=== PATIENT | female | born 1995 | race Two or more races ===

== ENCOUNTER 2018-12-02 22:37 | Emergency (ER) | payer MEDICAID ==
[~2018-12-02] VITALS: Ht 157.5 cm; Wt 63.5 kg
[2018-12-02 23:26] VITALS: BP 125/83
[2018-12-02 23:35] LABS: Urine Bacteria FEW /hpf (None Seen); Urine Blood Negative /uL (Negative); Urine Specific Gravity 1.027 (1.001-1.035); Urine WBC 21 /hpf (0 - 5)
[2018-12-03 00:32] LABS: Basophils # (auto) 0.1 uL; Basophils % (auto) 0.4 % (0.0-2.0); Eosinophils # (auto) 0.1 uL; Eosinophils % (auto) 1.1 % (0.0-7.0); Hematocrit 36.4 % (36.0-46.0); Hemoglobin 12.3 g/dL (12.2-16.2); Lymphocytes # (auto) 2.6 uL; Mean Corpuscular Hgb Conc. 33.8 g/dL (32.0-36.0); Mean Corpuscular Volume 80.1 fL (80.0-100.0); Monocytes # (auto) 1.1 uL; Monocytes % (auto) 8.5 % (0.0-12.0); Nucleated Red Blood Cells % 0.1 %; Platelet Count (auto) 306 10^3/uL (140-450); Red Blood Cells 4.54 10^6/uL (4.0-5.20); Red Cell Distribution Width 14.5 % (11.8-14.3); White Blood Cell 12.9 10^3/uL (4.4-10.8)
[2018-12-03 00:53] LABS: Albumin 3.7 g/dL (3.4-5.0); Amylase 63 U/L (25-115); Anion Gap 11 (5-15); Blood Urea Nitrogen 11 mg/dL (7-18); Calcium 8.7 mg/dL (8.5-10.1); Carbon Dioxide 23 mmol/L (21-32); Chloride 107 mmol/L (98-107); Glucose 77 mg/dL (74-106); Lipase 92 U/L (73-393); Potassium 3.8 mmol/L (3.5-5.1); Sodium 141 mmol/L (136-145)
[2018-12-03 00:55] LABS: Alanine Aminotransferase 49 U/L (13-56); Aspartate Aminotransferase 18 U/L (15-37); BUN/Creatinine Ratio 19.3; GFR African American 166 mL/min; GFR Non-African American 137 mL/min
[2018-12-03 00:57] LABS: Alkaline Phosphatase 72 U/L (45-117); Bilirubin, Total 0.4 mg/dL (0.2-1.0); Total Protein 7.7 g/dL (6.4-8.2)
== END 2018-12-03 03:49 | disposition left against medical advice (07) ==
LOC: ER 22:40
DX: O99.511 Diseases of the respiratory system complicating pregnancy, first trimester (principal); R05 Cough; Z3A.01 Less than 8 weeks gestation of pregnancy; Z53.21 Procedure and treatment not carried out due to patient leaving prior to being seen by health care provider
CPT/HCPCS: 36415; 80053; 81001; 82150; 83690; 84702; 85025

== ENCOUNTER 2022-09-14 08:53 | Emergency (ER) | payer MEDICAID, OTHER ==
[~2022-09-14] VITALS: Ht 157.5 cm; Wt 65.0 kg
[2022-09-14 09:45] VITALS: BP 127/73
[2022-09-14 10:01] LABS: Basophils # (auto) 0.1 10 ^3/uL (0-0.2); Basophils % (auto) 0.7 % (0.0-2.0); Eosinophils # (auto) 0.1 10 ^3/uL (0-0.8); Eosinophils % (auto) 1.4 % (0.0-7.0); Hematocrit 42.6 % (36.0-46.0); Hemoglobin 14.6 g/dL (12.2-16.2); Lymphocytes # (auto) 1.9 10 ^3/uL (0.4-5.4); Lymphocytes % (auto) 26.9 % (10.0-50.0); Mean Corpuscular Hemoglobin 29.5 pg (28.0-32.0); Mean Corpuscular Hgb Conc. 34.3 g/dL (32.0-36.0); Mean Corpuscular Volume 86.1 fL (80.0-100.0); Monocytes # (auto) 0.5 10 ^3/uL (0-1.3); Monocytes % (auto) 7.1 % (0.0-12.0); Neutrophils # (auto) 4.5 10 ^3/uL (1.6-8.6); Neutrophils % (auto) 63.9 % (37.0-80.0); Nucleated Red Blood Cells % 0.2 %; Red Blood Cells 4.95 10^6/uL (4.0-5.20); Red Cell Distribution Width 12.4 % (11.8-14.3)
[2022-09-14 10:12] LABS: Urine Bacteria NONE SEEN /hpf (None Seen); Urine Blood Negative /uL (Negative); Urine Mucus FEW (None Seen); Urine Specific Gravity 1.022 (1.001-1.035); Urine WBC 17 /hpf (0 - 5)
[2022-09-14 10:14] LABS: Albumin 3.9 g/dL (3.4-5.0); Calcium 9.6 mg/dL (8.5-10.1); Potassium 4.1 mmol/L (3.5-5.1)
[2022-09-14 10:16] LABS: BUN/Creatinine Ratio 21.3 (10.0-20.0); Bilirubin, Total 0.4 mg/dL (0.2-1.0); Total Protein 8.1 g/dL (6.4-8.2)
[2022-09-14] MEDS ORDERED: OME40GT PO (10:47)
[2022-09-14] MEDS ORDERED: LACT10SO70 PO (10:47)
== END 2022-09-14 10:53 | disposition home or self-care (01) ==
LOC: ER 08:53
DX: K21.9 Gastro-esophageal reflux disease without esophagitis (principal); K59.00 Constipation, unspecified; Z79.899 Other long term (current) drug therapy
CPT/HCPCS: 36415; 74018; 74176; 80053; 81001; 81025; 83690; 85025

== ENCOUNTER 2025-02-26 19:54 | Emergency (ER) | payer MEDICAID ==
[~2025-02-26] VITALS: Ht 157.5 cm; Wt 56.3 kg
[~2025-02-26 19:54] MED LIST: LACT10SO70 PO; OME40GT PO
--- NOTE | 2025-02-26 20:28 | ED.PDOC ---
History of Present Illness HPI Comments 29 y/o F presents with c/c of generalized headache and right sided facial numbness and tingling sensation. Patient endorses on 3x day history of constant, ongoing symptoms, following initial, unprovoked and atraumatic onset. Pain is commented to be worse on her right side. No modifiers. No reported recent st ressors, injuries, prior or concurrent ailments, sick contacts, or pertinent medial, surgical, social, or family history. She states on not being , currently. Denial of any facial droop, vision or speech changes, weakness, or further associated symptoms. Upon arrival to ED triage, patient was found with a blood pressure of 159/96, with no endorsement of history of hypertension. Chief Complaint: Headache Time Seen by MD: 20:15 Primary Care Provider: DACIA Reviewed Notes: Nurses Notes, Medications, Allergies Allergies: Coded Allergies: NO KNOWN ALLERGIES (Unverified , 12/02/18) Home Meds Active Scripts Lactulose (Lactulose) 10 Gm/15 Ml Yelena, 30 ML PO BID, #280 ML Prov:HUSSEIN CEDEÑO 09/14/22 Omeprazole (Prilosec Susp (For Gt)) 40 Mg Ss, 40 MG PO DAILY, #20 ML Prov:HUSSEIN CEDEÑO 09/14/22 Information Source: Patient Mode of Arrival: Ambulatory Severity: Moderate Timing: Days Duration: Since onset Prehospital treatment: None Past Medical History PAST MEDICAL HISTORY: Denies Surgical History: Denies all surgeries TUB ATTENDANT History: Denies all TUB ATTENDANT Hx Family History Family History: Reviewed,noncontributory to illness Social History Smoker: Non-Smoker Alcohol: Denies ETOH Use Drugs: Denies Drug Use Lives In: Home All Other Systems: Reviewed and Negative (Comprehensive review of systems are negative unless stated in HPI) Physical Exam General Appearance: Moderate Distress HEENT: Normal ENT Inspection, Pharynx Normal, TMs Normal Neck: Full Range of Motion, Non-Tender, Normal, Normal Inspection Respiratory: Chest Non-Tender, Lungs Clear, No Accessory Muscle Use, No Respiratory Distress, Normal Breath Sounds Cardiovascular: No Edema, No JVD, No Murmur, No Gallop, Normal Peripheral Pulses, Regular Rate/Rhythm Breast Exam: Deferred Gastrointestinal: No Organomegaly, Non Tender, No Pulsatile Mass, Normal Bowel Sounds, Soft Genitalia: Deferred Pelvic: Deferred Rectal: Deferred Extremities: No calf tenderness, Normal capillary refill, Normal inspection, Normal range of motion, Non-tender, No pedal edema Musculoskeletal : Apperance: Normal Neurologic: Alert, boring machine set up operator II-XII nml as Tested, No Motor Deficits, Normal Affect, Normal Mood, No Sensory Deficits Cerebellar Function: Normal Reflexes: Normal Skin: Dry, Normal Color, Warm Peripheral Pulses: 3+ Radial (R), 3+ Radial (L) Lymphatic: No Adenopathy Was a procedure done? Was a procedure done?: No Differential Dx Considerations may include: Hypertension, cluster migraine, tension headache, sinusitis, meningitis, intracranial hemorrhaging, CVA, viral syndrome, among others X-Ray, Labs, Meds, VS Vital Signs Date Time Temp Pulse Resp B/P (MAP) Pulse Ox O2 Delivery O2 Flow Rate FiO2 02/26/25 19:56 97.1 75 16 159/96 98 97.1 Patient alert. Complaining of headache. Vitals stable. Answering questions. Good muscle strength. Possible anxiety stress induced. Blood pressure slightly elevated. CT of the head reviewed does not show any acute changes. She does not take any medication for her blood pressure. Explained to the patient about stress relief. Exercise. Diet. Was told to follow up with her primary care physician. Was told to come back if there is any problem. Time of 1ST Reevaluation: 20:45 Reevaluation 1ST: Improved Patient Education/Counseling: Treatment, Need For Follow Up Family Education/Counseling: No Family Present SEPSIS Sepsis Screen Date sepsis recognized/suspect: Feb 26, 2025 Time Sepsis recognized/suspect: 1958 Recent Procedure: No On Antibiotic Therapy: No Respiratory Rate >20: No Heart Rate >90: No Temp<36 C (96.8 F) or >38.3 C: No SBP <90 or MAP <65 mmHG: No New Acute Mental Status Change: No Is the patient on CPAP, BIPAP,: No Physician Orders Head Without Contrast (02/26/25 20:17) Lorazepam Tablet (Ativan Tablet) (02/26/25 22:00) Vital Signs Date Time Temp Pulse Resp B/P (MAP) Pulse Ox O2 Delivery O2 Flow Rate FiO2 02/26/25 19:56 97.1 75 16 159/96 98 97.1 Departure 1 Departure Time of Disposition: 21:49 Impression: Primary Impression: HTN (hypertension) Qualified Codes: I10 - Essential (primary) hypertension Additional Impressions: Anxiety Tension headache Disposition: HOME / SELF CARE / HOMELESS Condition: Good Discharged With: Self Critical Care Note Critical Care Time?: No Stability Stability form required: No Heart Score Heart Score: Heart Score Response (Comments) Value History N/A 0 EKG N/A 0 Age N/A 0 Risk Factors N/A 0 Troponin N/A 0 Total 0 I personally scribed for JANICE BRICE MD ([email or web address]) on 02/26/25 at 20:28. Electronically submitted by Jesse Santos [email or web address]). JANICE BRICE MD Feb 26, 2025 20:28
--- NOTE | 2025-02-26 20:59 | DVH ---
Procedure: CT HEAD WITHOUT CONTRAST Study Date and Requested Time: 02/26/2025 08:27 PM History: tia Comparison: None Dose: CTDI: 48.82 mGy DLP: 685.21 mGycm Technique: Multiplanar images obtained through the brain without intravenous contrast. Findings: Normal brain volume and formation. No hemorrhages, masses, mass effect, midline shift, herniation or cytotoxic edema following a large v ascular territory. No intra-axial or extra-axial fluid collections. No evidence of hydrocephalus. The basal cisterns are patent. The pituitary gland, sella and parasellar regions are unremarkable. The cerebellar tonsils are in nor mal position. The cerebellum is unremarkable. The orbits and globes are unremarkable. The paranasal sinuses and mastoids are clear. There are no wo rrisome calvarial lesions. Impression: No evidence of acute intracranial abnormality.
[2025-02-26 22:07] VITALS: BP 136/87; PULSE 64; RESP 18; TEMP 98.3; O2SAT 97
[2025-02-26] MEDS: LORazepam 0.5 MG TAB PO ONE (22:07)
== END 2025-02-26 22:07 | disposition home or self-care (01) ==
LOC: ER 19:54
DX: I10 Essential (primary) hypertension (principal); F41.9 Anxiety disorder, unspecified; G44.209 Tension-type headache, unspecified, not intractable; Z79.899 Other long term (current) drug therapy
CPT/HCPCS: 70450